=== PATIENT | male | born 1945 | race Caucasian/White ===

== ENCOUNTER → 2020-11-16 09:48 | Outpatient (CLI) | payer MEDICARE, SELFPAY | PROVIDERS: Visit Provider Internal Medicine Gastroenterology | DX: Z20.822 Contact with and (suspected) exposure to COVID-19 (principal); Z01.812 Encounter for preprocedural laboratory examination | CPT/HCPCS: C9803; U0003; U0005 ==

== ENCOUNTER 2020-11-18 06:16 | Day surgery (SDC) | payer MEDICARE, SELFPAY ==
[2020-11-18] VITALS (7 sets, daily range): BP systolic 121–188; BP diastolic 69–97; PULSE 51–70; RESP 18; TEMP 36.2–36.3; O2SAT 92–98; BMI 27.6
[2020-11-18 06:57] LABS: POC Glucose,Bedside 97 (70-110)
--- NOTE | 2020-11-18 07:15 | FL_ITS ---
PROCEDURE: FL ERCP CLINICAL INDICATION: elevated liver enzymes COMPARISON: No exams were available for comparison FINDINGS: Fluoroscopy time: Minutes 14 seconds. Only 1 images submitted with the C-arm showing some minimal contrast in the right upper quadrant of unknown location. Please correlate with fluoroscopic findings. IMPRESSION: Status post ERCP with fluoroscopic assistance Dictated by: Jeremy Pascal MD 11/18/2020 11:46 Jeremy Pascal MD in [place] 11/18/2020 11:46
--- NOTE | 2020-11-18 07:24 | P.PN_ITS ---
[facility] Anesthesia Checklist - Patient Identification Patient Identification: Arm Band - Structural Data Admitted From: Home Planned Operative Procedure/s: ERCP Consent for Planned Operative Procedure(s) Verified: Yes - NPO Status Verified Time NPO: 00:00 - Airway Assessment C-Spine Mobility Assessed: Yes TMJ Mobility Assessed: Yes Dentition: Good Dentition - Neurological Assessment Level of Consciousness: Awake Hx Seizures: No Numbness or tingling in extremities: No - Anesthesia Plan Anesthesia Risk discussed: Yes Anesthesia Plan: Verified ASA Class: II Anesthesia Type: MAC [facility] History I have reviewed the patient's past medical history: Yes Medical History: Reports:: Diabetes Mellitus Type 2, Hypertension Denies:: Cancer, Diabetes Mellitus Type 1, Internal Pacemaker, MRSA, Seizures *Have you ever received a pneumonia vaccine?: Yes *Have you received a flu vaccine this season?: Yes Anesthesia experience/problems:: None Other Surgeries: No: Pacemaker Amputation: No Fractures: No - *Social History Last grade of school completed: High school graduate Smoking Status: Never smoker Alcohol Intake: current Alcohol Intake Frequency:: holidays/special occasions only Substance Use Type: denies use *Occupational Status:: retired *Travel in the last 8 weeks: None Family Hx:: Unable to obtain
--- NOTE | 2020-11-18 09:27 | P.PCN_ITS ---
[facility] Procedure Note Procedure Note:: ERCP procedure Report: Endoscopic retrograde cholangiopancreatography with needle-knife sphincterotomy Endoscopist: Skyler Multani II, MD Referring Physician: Joe Hyatt MD Date of Procedure: November 18, 2020 Equipment: Olympus 180 side viewing endoscope duodenoscope Sedation: MAC sedation Indication: Mr. Hudson is a 75-year-old gentleman who presents recently with symptoms of biliary colic. He did have prior cholecystectomy in 2010. At around noon time on Saturday, November 12, 2020 he was eating a salad and developed tight squeezing midepigastric abdominal pain that was very similar to his prior gallbladder pain. He did not have any nausea or vomiting. He had a similar episode later that afternoon. He did go to the emergency department and had labs and CAT scan. His white blood cell count was 12,500. His hemoglobin was slightly declined at 13.4. His liver chemistries were elevated with AST 163, ALT 184 and total bilirubin 4.6. Alkaline phosphatase was 50. The patient's CAT scan on November 13 showed no biliary ductal dilation or choledocholithiasis. There was a normal appearing liver. The pancreas was unremarkable. The patient's symptoms did resolve. Procedure: Prior to the procedure, a history and physical exam was performed, and patient's medications and allergies were reviewed. The risks, benefits and alternatives of the sedation and procedure were discussed with the patient. All questions were answered and informed consent was obtained. The patient was brought to the fluoroscopic radiology room. Patient identification and proposed procedure were verified by the physician and the nurse. The patient was placed in a swimmer's position between left lateral decubitus and prone position and the scope was passed under direct vision. Throughout the procedure, the patient's blood pressure, pulse, and oxygen saturations were monitored continuously. The ERCP was accomplished without difficulty. The patient tolerated the procedure well. Findings: The side-viewing duodenoscope was advanced directly into the upper esophagus and passed to the second portion of the duodenum. There was some chronic gastritis and reactive gastropathy of the stomach. The duodenum was normal. The ampulla was difficult to visualize because of an overlying fold. This did make the case more difficult to move the fold and visibly see the ampulla and biliary orifice. Cannulation of the biliary system was performed but not free cannulation. The cholangiogram did show a small subcentimeter (3 to 4 mm) filling defect or sludge in the distal CBD. The common bile duct appeared to be about 6 to 7 mm in maximal diameter. The prior cholecystectomy clips were identified. There was normal filling of the intrahepatic biliary system. After some time, free cannulation could not be performed so a needle- knife biliary sphincterotomy was performed. Even with small biliary sphincterotomy, free cannulation could not be performed but there was passage of the sludge (yellow) and appeared clearance of the soft biliary debris. The pancreatic duct was not cannulated intentionally. Impression: 1. Choledocholithiasis status post needle-knife sphincterotomy (without biliary free cannulation)?passage of yellow sludge/soft gallstone Plan: I will discussed the findings with the patient and family. I do feel that the ampullary biliary orifice was opened wide enough for passage of any sludge or debris. It was a very difficult cannulation because of the overlying ampullary fold.
--- NOTE | 2020-11-18 10:28 | SUR.PHASEII ---
INSTRUCTED PT TO TAKE BP MEDS WHEN ARRIVES HOME AND TO RECHECK BP IN 2 HOURS, IF STILL ELEVATED TO CALL ACIDITY TESTER. PT DENIES KRUEGER, DIZZINESS, OR VISION CHANGES. PT VERBALIZES UNDERSTANDING OF TEACHING.
== END 2020-11-18 10:28 | disposition home or self-care (01) ==
LOC: OUTP 06:20
PROVIDERS: PCP Family Medicine; Visit Provider Internal Medicine Gastroenterology
DX: K80.50 Calculus of bile duct without cholangitis or cholecystitis without obstruction (principal); E11.9 Type 2 diabetes mellitus without complications; I10 Essential (primary) hypertension; Z79.899 Other long term (current) drug therapy; Z83.3 Family history of diabetes mellitus; Z84.1 Family history of disorders of kidney and ureter
CPT/HCPCS: 43262; 74330; 82962; J2704